=== PATIENT | male | born 1965 | race Caucasian/White ===

== ENCOUNTER 2019-10-18 05:38 | Day surgery (SDC) | payer OTHER ==
[2019-10-17 13:26] VITALS: BMI 24.7
[2019-10-18 06:16] LABS: Hemoglobin 11.9 g/dL (14.0-18.0)
--- NOTE | 2019-10-18 09:19 | OP ---
DATE OF PROCEDURE: 10/18/2019 PROCEDURES PERFORMED: Esophagogastroduodenoscopy with biopsy and colonoscopy with snare polypectomy. PREOPERATIVE DIAGNOSES: Gastrointestinal bleed and anemia of acute blood loss. DESCRIPTION OF PROCEDURE: Informed consent was obtained from the patient. He was sedated with total intravenous anesthesia. The bite block was placed, and the endoscope was advanced easily to the second portion of the duodenum and retroflexion was performed in the stomach. The esophagus was normal. The GE junction was normal. The stomach was normal including retroflexed views. Biopsies were obtained from the antrum and body to rule out H pylori. There was a 6 to 7 mm clean white base ulcer in the first portion of the duodenum on the lateral wall at the junction between the first and second portions of the duodenum. This had a clean white base without stigmata of recent bleeding. The second portion of the duodenum was otherwise normal. The air was suctioned from the stomach. The patient was turned around. Rectal exam was performed and was normal. Moderate external hemorrhoids were present. The colonoscope was advanced without difficulty to the terminal ileum. The mucosa of the terminal ileum was normal. There was moderate diverticulosis throughout the colon. A 7 mm polyp was removed by cold snare polypectomy from the ascending colon. A hemoclip was placed over the polypectomy site to stop immediate bleeding. Good hemostasis was confirmed. A second 7 mm polyp was removed by cold snare polypectomy from the ascending colon. A 4 mm polyp was removed by cold snare polypectomy from the ascending colon. The remainder of the colonic mucosa was normal. Retroflexed views in the rectum were unremarkable. IMPRESSION: 1. A 6 mm clean white based cratered ulcer in the duodenum between the first and second portions of the duodenum. There was no stigmata of recent bleeding. This was likely the bleeding source. He has been on ibuprofen 800 mg daily and aspirin. The ulcer is likely secondary to the ibuprofen. Gastric biopsies were taken to rule out Helicobacter pylori. 2. Otherwise normal esophagogastroduodenoscopy. 3. Three polyps were removed from the ascending colon measuring 7 mm, 7 mm, and 4 mm. A hemoclip was placed over one of the 7 mm polypectomy bases to stop immediate bleeding. Good hemostasis was confirmed. 4. Diverticulosis throughout the colon, moderate. 5. Otherwise normal esophagogastroduodenoscopy and colonoscopy to the terminal ileum. RECOMMENDATIONS: 1. Await histopathology. Treat H. pylori if positive. 2. Timing of surveillance colonoscopy will depend on the pathology results. 3. Hold ibuprofen. 4. Nexium over the counter 40 mg daily for the next week, then back to 20 mg daily. Job ID: [id number]
[2019-10-18] MEDS ORDERED: Lidocaine 1% PF 5 ML VIAL ONE (11:35)
[2019-10-18] MEDS ORDERED: PROPOFOL 200 MG/20 ML VIAL ONE (11:35)
== END 2019-10-18 09:26 | disposition home or self-care (01) ==
LOC: SDC 05:38
PROVIDERS: ATTEND Internal Medicine Gastroenterology
PROC: 0DB78ZX Excision of Stomach, Pylorus, Via Natural or Artificial Opening Endoscopic, Diagnostic (ICD-10-PCS; principal; 2019-10-18)
PROC: 0DBK8ZX Excision of Ascending Colon, Via Natural or Artificial Opening Endoscopic, Diagnostic (ICD-10-PCS; principal; 2019-10-18)
DX: K29.51 Unspecified chronic gastritis with bleeding (principal); D12.2 Benign neoplasm of ascending colon; K26.4 Chronic or unspecified duodenal ulcer with hemorrhage; K57.31 Diverticulosis of large intestine without perforation or abscess with bleeding; K64.4 Residual hemorrhoidal skin tags; D62 Acute posthemorrhagic anemia; K21.9 Gastro-esophageal reflux disease without esophagitis; E78.00 Pure hypercholesterolemia, unspecified; E78.5 Hyperlipidemia, unspecified; Z87.891 Personal history of nicotine dependence; Z79.82 Long term (current) use of aspirin; Z79.899 Other long term (current) drug therapy
CPT/HCPCS: 85018; 88305; 88312; J2001; J2704